=== PATIENT | female | born 1955 | race Caucasian/White ===

== ENCOUNTER → 2016-10-12 | Outpatient (CLI) | payer BC ==
--- NOTE | 2016-10-12 14:27 | PCVCIMAG ---
APPROVED REPORT Exam: Stress Echocardiogram Indication: Chest pain, Elevated Calcium score, fam hx CAD, hlp Stress Nurse: Francisca Villareal RN Status: routine HR: 87 bpm Rhythm: NSR Medical History Cardiac Risk Factors: FHX of CAD Procedure The patient underwent an Exercise Stress Test using the Ori Protocol. Blood pressure, heart rate, and EKG were monitored. An Echocardiogram was performed by p 3 armament/ordnance ima technician in four stages in quad fashion. At peak stress, four selected images were obtained and placed side by side with resting images for comparison. Stress Test Details Stress Test: Exercise stress testing was performed using a Ori protocol. HR Resting HR: 87 bpmMax Heart Rate (APMHR): 158 bpm Max HR Achieved: 162 bpmTarget HR (85% APMHR): 134 bpm % of APMHR: 102 Recovery HR: 103 bpm HR response to stress: Normal HR response to stress BP Resting BP: 136/90 mmHg Max BP: 182/84 mmHg Recovery BP: 160/82 mmHg ECG Resting ECG: Sinus Rhythm Stress ECG: Sinus Rhythm ST Change: Normal Arrhythmia: None Recovery ECG: Sinus Rhythm Recovery ST Change: Normal Recovery Arrhythmia: None Clinical Reason for Termination: Maximal effort Stress Symptoms: Dyspnea Exercise duration: 9 min sec Highest Stage Achieved: Stage 3: 3.4 mph at 14% grade. Exercise capacity: 10.4 METs Overall Exercise Capacity for Age: Good Stress ECG Conclusion 1. Subjectively negative for ischemia 2. Elective cardiographic C negative for ischemia 3. Satisfactory functional capacity Pre-Stress Echo The resting Echocardiogram showed lower limits of normal left ventricular contractility with an estimated Ejection Fraction of about 50%. Normal wall motion in all segments on baseline images. Post-Stress Echo The stress Echocardiogram showed normal left ventricular contractility with an estimated Ejection Fraction of about 60-65%. Normal augmentation of wall motion in all segments on post stress images. Clinical No clinical or ECG evidence for ischemia. Conclusion Clinical Response: Non-ischemic Exercise Capacity: Average Stress ECG Response: Non-ischemic Stress Echo Images: Non-ischemic 1. Mild aortic regurgitation and mild-moderate mitral regurgitation with mild tricuspid regurgitation and PAP of 32 mmHg. 2. Low risk study for significant exercise-induced ischemia Other Information Study Quality: Adequate <Conclusion> 1. Mild aortic regurgitation and mild-moderate mitral regurgitation with mild tricuspid regurgitation and PAP of 32 mmHg. 2. Low risk study for significant exercise-induced ischemia
== END | disposition home or self-care (01) ==
LOC: PCVCIMAG 09:55
PROVIDERS: ATTEND Internal Medicine
DX: I08.3 Combined rheumatic disorders of mitral, aortic and tricuspid valves (principal); I25.10 Atherosclerotic heart disease of native coronary artery without angina pectoris; E78.5 Hyperlipidemia, unspecified; Z86.79 Personal history of other diseases of the circulatory system
CPT/HCPCS: 93325; 93351